=== PATIENT | male | born 1990 | race African-American/Black ===

== ENCOUNTER 2016-08-28 12:06 | Emergency (ER) | payer OTHER ==
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
== END 2016-08-28 14:44 | disposition home or self-care (01) ==
LOC: CFTX 12:06 → CED 12:06 → CFTX 12:55
DX: S16.1XXA Strain of muscle, fascia and tendon at neck level, initial encounter (principal); S00.01XA Abrasion of scalp, initial encounter; F17.200 Nicotine dependence, unspecified, uncomplicated; Y04.0XXA Assault by unarmed brawl or fight, initial encounter; Y92.410 Unspecified street and highway as the place of occurrence of the external cause; Z91.030 Bee allergy status; Z91.018 Allergy to other foods
CPT/HCPCS: 70450; 72125; 99284